=== PATIENT | male | born 1995 | race Caucasian/White ===

== ENCOUNTER 2017-05-05 15:25 | Emergency (ER) | payer MEDICAID, OTHER ==
[~2017-05-05] VITALS: Ht 172.7 cm; Wt 82.0 kg
[2017-05-05] MEDS ORDERED: ACETAMINOPHEN 325MG TABLET PO STA (17:48)
[2017-05-05] MEDS ORDERED: SODIUM CHLORIDE 0.9% 1,000 ML IV ONE (17:50)
[2017-05-05 18:59] LABS: CLARITY URINE CLEAR (CLEAR); COLOR URINE YELLOW (YELLOW); KETONES URINE TRACE (NEGATIVE); LEUKOCYTE ESTERASE URINE NEGATIVE (NEGATIVE); NITRITE URINE NEGATIVE (NEGATIVE); OCCULT BLOOD URINE 1+ (NEGATIVE); PH URINE 8.5 (4.5-8.0); PROTEIN URINE NEGATIVE (NEGATIVE); SPECIFIC GRAVITY URINE 1.017 (1.005-1.030); UROBILINOGEN URINE 0.2 E.U./dL (0.2-1.0)
[2017-05-05 20:40] VITALS: BP 114/64
== END 2017-05-05 21:13 | disposition home or self-care (01) ==
LOC: ER 15:48
DX: R10.9 Unspecified abdominal pain (principal); R31.9 Hematuria, unspecified
CPT/HCPCS: 81001; 96360; 99284; J7030; Z7610